=== PATIENT | male | born 1960 | race Native Hawaiian/Other Pacific Islander ===

== ENCOUNTER 2019-05-02 23:42 | Emergency (ER) | payer OTHER ==
[~2019-05-02] VITALS: Ht 167.6 cm; Wt 133.8 kg
[2019-05-03] MEDS ORDERED: ENALAPRIL5 MG PO (00:03)
[2019-05-03] MEDS ORDERED: COREG CR10 MG PO (00:03)
[2019-05-03] MEDS ORDERED: FLUTMIS6 INH (00:04)
[2019-05-03] MEDS ORDERED: CLARITIN10 MG PO (00:04)
[2019-05-03 00:40] LABS: PLATELET COUNT 231 K/uL (142-355)
[2019-05-03 00:49] LABS: POTASSIUM 4.7 mmol/L (3.6-5.2)
[2019-05-03 04:38] VITALS: BP 148/72; TEMP 98.1
== END 2019-05-03 04:38 | disposition home or self-care (01) ==
LOC: ED 23:42
PROVIDERS: Emergency Medicine
DX: N20.1 Calculus of ureter (principal)
CPT/HCPCS: 36415; 80053; 81000; 82150; 83690; 85027; 96365; 96375; 99284; J0696; J1885; J2175; J2405; Q9963